=== PATIENT | male | born 1995 | race Caucasian/White ===

== ENCOUNTER 2023-10-18 07:59 | Emergency (ER) | payer MEDICAID ==
[~2023-10-18] VITALS: Ht 180.3 cm; Wt 100.0 kg
[2023-10-18 08:22] VITALS: BP 137/101; PULSE 66; RESP 18; TEMP 97.9; O2SAT 100
[2023-10-18] MEDS ORDERED: LIDO15CR11 TP (09:19)
== END 2023-10-18 09:49 | disposition home or self-care (01) ==
LOC: ER 08:22
DX: K64.9 Unspecified hemorrhoids (principal); K60.2 Anal fissure, unspecified
CPT/HCPCS: 99282; Z7610

== ENCOUNTER 2024-02-09 12:56 | Emergency (ER) | payer MEDICAID ==
[~2024-02-09] VITALS: Ht 177.8 cm; Wt 104.0 kg
[~2024-02-09 12:56] MED LIST: LIDO15CR11 TP
[2024-02-09 13:03] VITALS: BP 140/91; PULSE 70; RESP 20; TEMP 98.4; O2SAT 100
[2024-02-09 13:27] LABS: CLARITY URINE CLEAR (CLEAR); COLOR URINE YELLOW (YELLOW); GLUCOSE URINE NEGATIVE (NEGATIVE); KETONES URINE NEGATIVE (NEGATIVE); LEUKOCYTE ESTERASE URINE NEGATIVE (NEGATIVE); NITRITE URINE NEGATIVE (NEGATIVE); OCCULT BLOOD URINE NEGATIVE (NEGATIVE); PH URINE 5.5 (4.5-8.0); PROTEIN URINE NEGATIVE (NEGATIVE); SPECIFIC GRAVITY URINE 1.015 (1.005-1.030); UROBILINOGEN URINE 0.2 E.U./dL (0.2-1.0)
[2024-02-09] MEDS ORDERED: CLOT45CR62 TOP (14:33)
[2024-02-09] MEDS ORDERED: DOXY-456 PO (14:33)
[2024-02-09] MEDS: CEFTRIAXONE SODIUM 500MG VIAL IM NR (14:58)
[2024-02-12 04:09] LABS: CHLAMYDIA TRACHOMATIS NAA Negative (Negative); NEISSERIA GONORRHOEAE NAA Negative (Negative)
== END 2024-02-09 15:51 | disposition home or self-care (01) ==
LOC: ER 12:56
DX: Z20.2 Contact with and (suspected) exposure to infections with a predominantly sexual mode of transmission (principal)
CPT/HCPCS: 87491; 87591; 81003; 96372; 99283; J0696; Z7610 ×2